=== PATIENT | male | born 1975 | race American Indian/Alaskan Native ===

== ENCOUNTER 2019-06-26 06:13 | Emergency (ER) | payer OTHER ==
[2019-06-26 08:07] LABS: Basophils % (Auto) 0.5 % (0.0-1.8); Eosinophils % (Auto) 0.9 % (0.0-4.3); Hematocrit 38.9 % (35.5-45.6); Lymphocytes % (Auto) 29.8 % (13.4-35.0); Mean Corpuscular HGB Conc 33 % (32-34); Mean Corpuscular Volume 98 fl (84-94); Monocytes # (Auto) 0.4 K/mm3 (0.0-0.8); Monocytes % (Auto) 13.9 % (0.0-7.3); Platelet Count 290 K/mm3 (140-440); Red Blood Count 3.95 M/mm3 (3.65-5.03)
[2019-06-26 08:23] LABS: Alanine Aminotransferase 20 units/L (7-56); Albumin 4.7 g/dL (3.9-5); BUN/Creatinine Ratio 9; Blood Urea Nitrogen 8 mg/dL (9-20); Calcium 9.5 mg/dL (8.4-10.2); Hemolysis Index 23
[2019-06-26] MEDS ORDERED: SODIUM CHLORIDE 0.9% 1000 ML 1,000 ML IV ONE (09:22)
[2019-06-26] MEDS ORDERED: ONDANSETRON 4 MG/2 ML INJ IV ONE (09:22)
[2019-06-26] MEDS ORDERED: DICYCLOMINE 20 MG/2 ML INJ IM ONE (09:22)
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
[2019-06-26 10:29] LABS: Bilirubin,Urine NEG (Negative); Blood,Urine NEG (Negative); Color,Urine Amber (Yellow); Mucus,Urine 3+ /HPF
[2019-06-26 10:49] VITALS: BP 114/55
== END 2019-06-26 11:42 | disposition home or self-care (01) ==
LOC: ED 06:13
DX: R11.2 Nausea with vomiting, unspecified (principal); R19.7 Diarrhea, unspecified; Z21 Asymptomatic human immunodeficiency virus [HIV] infection status; Z90.49 Acquired absence of other specified parts of digestive tract; Z79.899 Other long term (current) drug therapy; Z88.5 Allergy status to narcotic agent; Z88.8 Allergy status to other drugs, medicaments and biological substances
CPT/HCPCS: 36415; 80053; 81001; 82550; 83690; 85025; 96361; 96372; 96374; 99282; J0500; J2405; J7030